=== PATIENT | male | born 1945 ===

== ENCOUNTER 2020-05-10 08:16 | Emergency (ER) | payer OTHER ==
[~2020-05-10] VITALS: Ht 175.3 cm; Wt 62.6 kg
[2020-05-10] MEDS ORDERED: VOLTAREN100 GM TOP (09:47)
[2020-05-10] MEDS ORDERED: CELEBREX200MG PO (09:47)
== END 2020-05-10 10:09 | disposition home or self-care (01) ==
LOC: ER 08:16
DX: M13.862 Other specified arthritis, left knee (principal)